=== PATIENT | male | born 1940 | race American Indian/Alaskan Native ===

== ENCOUNTER 2018-12-02 07:49 | Emergency (ER) | payer MEDICARE ==
[2018-12-02 08:05] VITALS: BP 133/82
--- NOTE | 2018-12-02 08:57 | Emergency Department Report ---
ED Rash HPI - HPI Chief Complaint: Skin Rash Stated Complaint: SPOT ON LEG AND BACK Time Seen by Provider: 12/02/18 08:51 Duration: 2 Days Location: Lower Extremities Suspected Cause: Unknown (suspects an insect bite) Rash Symptoms: Yes Itching, No Tongue/Oral Swelling, No Breathing Difficulties, No Choking Sensation, No Wheezing/Dyspnea, No Peeling, No Blistering, No Fever Severity: moderate ED Review of Systems ROS: Stated complaint: SPOT ON LEG AND BACK Other details as noted in HPI Comment: All other systems reviewed and negative ED Past Medical Hx - Past Medical History Previous Medical History?: Yes Hx Hypertension: Yes Additional medical history: Enlarged heart, gouty arthritis - Surgical History Past Surgical History?: Yes Hx Appendectomy: Yes - Social History Smoking Status: Current Every Day Smoker Substance Use Type: Alcohol - Medications Home Medications: Home Medications Medication Instructions Recorded Confirmed Last Taken Type Colchicine [Colcrys] 0.6 mg PO BID #8 tab 07/07/14 Unknown Rx Lisinopril [Zestril] 20 mg PO QDAY #30 tablet 07/07/14 Unknown Rx amLODIPine [Norvasc] 5 mg PO DAILY #30 tab 07/07/14 Unknown Rx predniSONE [Deltasone] 20 mg PO BID #8 tablet 07/07/14 Unknown Rx Clotrimazole [Clotrimazole AF] 1 applic TP BID #30 cream..g. 12/02/18 Unknown Rx Triamcinolone 0.1% [Kenalog 0.1% 1 applic TP TID #1 tube 12/02/18 Unknown Rx CREAM] Rash Exam - Exam General: Vital signs noted. No distress. Alert and acting appropriately. HEENT: No Periorbital Edema, No Conjuctival Injection, No Chemosis, No Perioral Edema, No Tongue Edema, No Uvular Edema, No Compromised Airway, No Drooling Lungs: Yes Good Air Exchange (Normal Breath Sounds), No Wheezes, No Ronchi, No Stridor, No Cough, No Labored Respirations, No Retractions, No Use of Accessory Muscles, No Other Abnormal Lung Sounds Heart: Yes Regular, No Murmur Skin: Yes Other (on the posterior right leg the patient has a nickel-sized lesion which is rounded with a raised border. Lesion appears to be fascicular. There is no surrounding erythema or induration or fluctuance.) Other: Positive: Abdomen Normal, Neurologic Normal, Musculoskeletal Normal ED Course Vital Signs 12/02/18 08:02 Temperature 97.9 F Pulse Rate 74 Respiratory 18 Rate Blood Pressure 133/82 O2 Sat by Pulse 99 Oximetry ED Medical Decision Making - Medical Decision Making Patient is presenting with a lesion on the posterior right leg. Patient has several other small areas that he believes are insect bites which are very small on his hands and his abdomen over the lesion on his posterior leg does appear much larger and different in nature than the other lesions. Patient's lesion appears most consistent with ringworm however because the patient feels as though he was bitten by something this could also be a localized reaction to an insect bite. Does not appear to be any evidence of any secondary bacterial infection. Patient will be covered for ringworm and a possible allergic reaction. Patient started on triamcinolone as well as clotrimazole Critical care attestation.: If time is entered above; I have spent that time in minutes in the direct care of this critically ill patient, excluding procedure time. ED Disposition Clinical Impression: Skin lesion Disposition: - TO HOME OR SELFCARE Is pt being admited?: No Does the pt Need Aspirin: No Condition: Stable Instructions: Insect Bite or Sting (ED), Antifungals (On the skin) Additional Instructions: Please follow up with the supervisor of officials listed if your symptoms did not improve. The round rash on her leg could be fungal or a local reaction to an insect bite. You have been covered for both Prescriptions: Clotrimazole [Clotrimazole AF] 1 applic TP BID #30 cream..g. Triamcinolone 0.1% [Kenalog 0.1% CREAM] 1 applic TP TID #1 tube Referrals: TRUDY HICKS MD [Staff Physician] - 3-5 Days Time of Disposition: 08:59
== END 2018-12-02 09:05 | disposition home or self-care (01) ==
LOC: ED 07:49
DX: L98.9 Disorder of the skin and subcutaneous tissue, unspecified (principal); I10 Essential (primary) hypertension; M10.9 Gout, unspecified; F17.200 Nicotine dependence, unspecified, uncomplicated; Z79.1 Long term (current) use of non-steroidal anti-inflammatories (NSAID); Z79.899 Other long term (current) drug therapy; Z88.0 Allergy status to penicillin
CPT/HCPCS: 99282